=== PATIENT | male | born 1990 | race Caucasian/White ===

== ENCOUNTER 2024-06-09 16:50 | Emergency (ER) | payer MEDICAID ==
[~2024-06-09] VITALS: Ht 170.2 cm; Wt 68.0 kg
[2024-06-09 16:52] VITALS: TEMP 97.5; O2SAT 96
[2024-06-09 21:26] VITALS: BP 142/92; PULSE 101; RESP 19
[2024-06-09] MEDS: IBUPROFEN 600MG TABLET PO ONE (21:26)
[2024-06-09] MEDS: BACITRACIN ZINC OINT UDPKT TOP ONE (22:44)
[2024-06-09] MEDS: LIDOCAINE HCL/PF 1% 10 MG/ML 5ML VIAL INFIL ONE (22:52)
[2024-06-09] MEDS ORDERED: IBUP-2029 MT (22:52)
[2024-06-09] MEDS ORDERED: BO1 TP (22:52)
== END 2024-06-09 23:33 | disposition home or self-care (01) ==
LOC: ER 16:50
DX: S61.012A Laceration without foreign body of left thumb without damage to nail, initial encounter (principal); W25.XXXA Contact with sharp glass, initial encounter; Y93.89 Activity, other specified; Y92.89 Other specified places as the place of occurrence of the external cause; Y99.8 Other external cause status
CPT/HCPCS: 12001; 99283; J3490; Z7610 ×2